=== PATIENT | female | born 1930 | race Caucasian/White ===

== ENCOUNTER 2017-04-19 16:12 | Emergency (ER) | payer OTHER ==
[~2017-04-19] VITALS: Ht 154.9 cm; Wt 55.8 kg
[2017-04-19 16:52] LABS: URINE BILIRUBIN NEGATIVE (Negative); URINE BLOOD 3+ (Negative); URINE CLARITY CLEAR; URINE COLOR YELLOW; URINE GLUCOSE-RANDOM* NEGATIVE (Negative); URINE KETONES NEGATIVE (Negative); URINE LEUKOCYTES 2+ (Negative); URINE NITRITE POSITIVE (Negative); URINE PROTEIN (DIPSTICK) NEGATIVE (Negative); URINE UROBILINOGEN 0.2 E.U./dl (0.2-1.0)
[2017-04-19 17:01] LABS: BACTERIA 1-9 Few /HPF (None Seen); CASTS None Seen /LPF (None Seen); CRYSTALS None Seen /LPF (None Seen); SQUAMOUS 0-3 Few /LPF (0-3); URINE WBC >25 Many /HPF (0-5)
[2017-04-19] MEDS ORDERED: KEFLEX500 M1 PO (17:02)
[2017-04-19] MEDS ORDERED: COUMADIN 1MG TAB1 M1 PO (17:08)
[2017-04-19] MEDS ORDERED: LOPRESSOR25 PO (17:09)
[2017-04-19] MEDS ORDERED: CARDIZEM CD120 MG PO (17:09)
== END 2017-04-19 17:15 | disposition home or self-care (01) ==
LOC: ER 16:12
PROVIDERS: Physician Assistant
DX: N39.0 Urinary tract infection, site not specified (principal); I10 Essential (primary) hypertension